=== PATIENT | male | born 1970 | race Caucasian/White ===

== ENCOUNTER 2022-11-11 11:44 | Emergency (ER) | payer MEDICARE, OTHER ==
[~2022-11-11] VITALS: Ht 182.9 cm; Wt 95.2 kg
[~2022-11-11 11:44] MED LIST: AZIT250 PO; HYDACE5 PO; IBUHYD PO; METH5 PO; Vistaril25 MG PO
[2022-11-11 12:26] LABS: BASOPHILS ABSOLUTE AUTO 0.03 K/mm3 (0.00-0.23); BASOPHILS PERCENT AUTO 1 % (0-2); EOSINOPHILS ABSOLUTE AUTO 0.04 K/mm3 (0.00-0.68); EOSINOPHILS PERCENT AUTO 1 % (0-6); Hematocrit 42.3 % (37.0-53.0); Hemoglobin 15.1 g/dL (13.5-17.5); IMMATURE GRAN ABSOLUTE AUTO 0.02 K/mm3 (0.00-0.10); IMMATURE GRAN PERCENT AUTO 0 % (0-1); LYMPHOCYTES ABSOLUTE AUTO 0.92 K/mm3 (0.84-5.20); LYMPHOCYTES PERCENT AUTO 17 % (21-46); MONOCYTES ABSOLUTE AUTO 1.04 K/mm3 (0.16-1.47); MONOCYTES PERCENT AUTO 20 % (4-13); Mean Corpuscular HGB 32.2 pg (26.0-34.0); Mean Corpuscular HGB Conc 35.7 g/dL (31.5-36.5); Mean Corpuscular Volume 90 fL (80-100); Mean Platelet Volume 9.2 fL (9.1-12.4); NEUTROPHILS ABSOLUTE AUTO 3.28 K/mm3 (1.96-9.15); NEUTROPHILS PERCENT AUTO 61 % (41-73); Platelet Count 203 K/mm3 (150-400); RDW Coefficient Variation 12.2 % (11.7-14.2); RDW Standard Deviation 39.7 fL (35.1-46.3); Red Blood Cell Count 4.69 M/mm3 (4.30-5.90); White Blood Cell Count 5.33 K/mm3 (4.00-11.30)
[2022-11-11 12:37] LABS: Source, Urine Clean Catch
[2022-11-11 12:43] LABS: Albumin, Blood 3.7 g/dL (3.4-5.0); Bilirubin, Total 0.4 mg/dL (0.1-1.0); Bun/Creatinine Ratio 14.7 (12.0-20.0); Calcium, Blood 8.4 mg/dL (8.5-10.1); Creatinine, Blood 0.88 mg/dL (0.60-1.20); Globulin, Blood 3.6 g/dL (2.2-4.0); Potassium, Blood 3.7 mmol/L (3.5-5.5); Total Protein, Blood 7.3 g/dL (6.4-8.2)
[2022-11-11 12:43] LABS: Appearance, Urine Clear (Clear); Bilirubin, Urine Neg (Neg); Blood, Urine 1+ (Neg); Color, Urine Yellow (P-Yellow); Glucose Qualitative, Urine Neg (Neg); Ketones, Urine Neg (Neg); Leukocyte Esterase, Urine Neg (Neg); Nitrite, Urine Neg (Neg); Protein, Urine 2+ (Neg); Urobilinogen, Urine NORM (Normal)
[2022-11-11 12:52] LABS: White Blood Cells, Urine 0-2 /hpf (0-5)
[2022-11-11 12:53] LABS: Bacteria Rare /hpf; Mucus Light (0-Heavy); Spermatozoa Mod /hpf; Squamous Epithelial Cells Not Seen /hpf (Few)
[2022-11-11 14:57] LABS: U Amphetamine Screen DETECTED; U Barbituate Screen Not Detected; U Benzodiazapine Screen Not Detected; U Buprenorphine Screen Not Detected; U Cannabinoids Screen DETECTED; U Cocaine Screen Not Detected; U Methadone Screen Not Detected; U Methamphetamine Screen DETECTED; U Opiates Screen Not Detected; U Oxycodone Screen Not Detected; U Phencyclidine Screen Not Detected; U Propoxyphene Screen Not Detected
[2022-11-11 15:30] VITALS: BP 136/78
[2022-11-11] MEDS ORDERED: FAMO20 PO (16:01)
[2022-11-11] MEDS ORDERED: ONDA4ODT MM (16:01)
== END 2022-11-11 16:31 | disposition home or self-care (01) ==
LOC: ER 11:44
PROVIDERS: Student in an Organized Health Care Education/Training Program
DX: K80.20 Calculus of gallbladder without cholecystitis without obstruction (principal); K76.0 Fatty (change of) liver, not elsewhere classified; N20.0 Calculus of kidney; F17.210 Nicotine dependence, cigarettes, uncomplicated; Z88.0 Allergy status to penicillin
CPT/HCPCS: 74177; 80053; 81001; 83690; 85025; 96374-59; 96375; 99284-25; A9270; G0480; J1885; J2405; Q9967

== ENCOUNTER 2023-05-22 15:26 | Emergency (ER) | payer MEDICARE, OTHER ==
[~2023-05-22] VITALS: Ht 182.9 cm; Wt 95.7 kg
[~2023-05-22 15:26] MED LIST changes: +FAMO20 PO; +ONDA4ODT MM
[2023-05-22 15:51] VITALS: BP 163/106
== END 2023-05-22 18:26 | disposition left against medical advice (07) ==
LOC: ER 15:26
DX: Z53.21 Procedure and treatment not carried out due to patient leaving prior to being seen by health care provider (principal)
CPT/HCPCS: 99281